=== PATIENT | female | born 1945 | race African-American/Black ===

== ENCOUNTER → 2018-11-03 | Day surgery (SDC) | payer MEDICARE ==
--- NOTE | 2018-11-01 12:33 | Diagnostic Imaging Report ---
EXAMINATION: CHEST 2 VIEWS INDICATION: Pre-admit. COMPARISON: None FINDINGS: TUBES and LINES: None. LUNGS: Lungs are well inflated. Lungs are clear. There is no evidence of pneumonia or pulmonary edema. PLEURA: No pleural effusion or pneumothorax. HEART AND MEDIASTINUM: The cardiomediastinal silhouette is unremarkable. BONES AND SOFT TISSUES: No acute osseous abnormality. UPPER ABDOMEN: No free air under the diaphragm. IMPRESSION: No acute radiographic abnormality. Signed by: Dr. Richar Adamson MD on 11/01/2018 12:30 PM
[~2018-11-03] MED LIST: ACETAMINOPHEN 1000 MG/100 ML IV ONE; BUPIVACAINE 0.5%/EPI 30 ML SDV INJ ONE; CLINDAMYCIN PHOS 900MG/ 50ML 50 ML IV ONE; DEXAMETHASONE SOD PHOS INJ 4 MG/ML VIAL ONE; FENTANYL CITRATE/PF 100MCG/2 ML INJ ONE; LIDOCAINE HCL 2% LOCAL INJ 5 ML SDV VIAL INJ ONE; MIDAZOLAM HCL 2 MG/2 ML VIAL ONE; PROPOFOL IV EMULSION 10 MG/ML 50 ML VIAL ONE; SEVOFLURANE INHAL SOLN 250 ML PEN BTL ONE
--- OUTSIDE RECORDS SUMMARY | 2018-11-03 06:26 | XMS REPORT ---
Author Author [facility] Address Unknown Phone Unavailable Care Team Providers Care Physicist [employer] Name Role Phone SANDRA GALVAN Unavailable Unavailable Problems This patient has no known problems. Allergies, Adverse Reactions, Alerts This patient has no known allergies or adverse reactions. Medications This patient has no known medications. Results Test Description Test Time Test Comments Text Results Atomic Results Result Comments CHEST 2 VIEWS 2018-11-01 12:28:00 [place] [address] Patient Name: LOUISE LOYOLA MR #: [id number] : 1945 Age/Sex: 73/F Req #: [id number] Adm Physician: Ordered by: SANDRA GALVAN MD Report #: [id number] Location: OR Room/Bed: Procedure: [id number] DX/CHEST 2 VIEWS Exam Date: Exam Time: REPORT STATUS: Signed EXAMINATION: CHEST 2 VIEWS INDICATION: Pre-admit. COMPARISON: None FINDINGS: TUBES and LINES: None. LUNGS: Lungs are well inflated. Lungs are clear. There is no evidence of pneumonia or pulmonary edema. PLEURA: No pleural effusion or pneumothorax. HEART AND MEDIASTINUM: The cardiomediastinal silhouette is unremarkable. BONES AND SOFT TISSUES: No acute osseous abnormality. UPPER ABDOMEN: No free air under the diaphragm. IMPRESSION: No acute radiographic abnormality. Signed by: Dr. Kimberly Calderon MD on 11/01/2018 12:30 PM Dictated By: KIMBERLY CALDERON MD 1230 Transcribed By: JOLANTA on 11/01/18 1230 COPY TO: SANDRA GALVAN MD
--- NOTE | 2018-11-03 07:10 | NUR ---
Pre-surgical visit. Pt unavailable at this time. Pt's nurse performing procedure bedside. LASHAWN VILLAR [facility] Department O: [phone] Pager: [phone] ([phone] number calling from)
[2018-11-03 11:15] VITALS: BP 134/87
--- NOTE | 2018-11-04 01:21 | Operative Report ---
DATE OF PROCEDURE: 11/03/2018 SURGEON: Virgil Aguilar MD PREOPERATIVE DIAGNOSES: 1. Right knee medial meniscus tear. 2. Right knee degenerative joint disease of the knee. POSTOPERATIVE DIAGNOSES: 1. Right knee medial meniscus tear. 2. Right knee lateral meniscus tear. 3. Right knee, degenerative joint disease of the knee. OPERATION/PROCEDURE PERFORMED: The patient underwent a right knee examination under anesthesia, right knee arthroscopy, right knee partial medial meniscectomy, right knee partial lateral meniscectomy, right knee chondroplasty of the patella, the trochlea, the medial femoral condyle, the medial tibial plateau, lateral femoral condyle, and lateral tibial plateau. RACKMAN: Minnie Grady. ANESTHESIA: General endotracheal intubation anesthesia. IV FLUIDS: Per the Anesthesia record. BRIEF DISCUSSION OF THE PATIENT'S OPERATIVE PROCEDURE: Ms. Chase was taken to the operating room, placed in the supine position on the operating room table. Following induction of general anesthesia as well as endotracheal intubation, the patient's right lower extremity was examined under anesthesia. She was found to have a mild effusion within the knee joint, but otherwise ligamentously stable knee. The patient's lower extremity was prepped and draped in standard surgical fashion. A 2-port technique was used to provide this patient arthroscopic evaluation of the knee joint. Examination of suprapatellar pouch, medial and lateral gutters found no evidence of loose bodies. There was, however, evidence of chondromalacia of the patella and trochlear surfaces. The scope was then advanced into the medial compartment. Examination of the medial compartment demonstrated a torn medial meniscus. There was also chondromalacia of the articulating surfaces. A combination of biting forceps and a motorized shaver were used to resect the torn portion of the meniscus. Chondroplasties of the medial femoral condyle and medial tibial plateau were also performed at this time. The scope was then advanced into intercondylar notch and the anterior cruciate ligament was identified and found to be intact. The scope was then advanced into the lateral compartment , noted an undersurface tear of the posterior horn of the lateral meniscus. There was loss of chondromalacia of the articulating surfaces. The combination of biting forceps and a motorized shaver were used to resect the torn portion of the meniscus. Chondroplasties of the lateral femoral condyle and lateral tibial plateau were performed at this time. The scope was then advanced into the suprapatellar pouch and chondroplasties of the patella and trochlea were performed. The knee was insufflated with sterile normal saline. The portal sites were closed using 4-0 nylon sutures. The portal sites as well as the knee itself were injected with 0.5% Marcaine with epinephrine. Sterile dressings were applied. The patient was then awakened and taken to the Postanesthesia Care Unit in stable condition. MD FAWN Taylor/MORALES /[id number]
== END | disposition home or self-care (01) ==
LOC: OR 06:24
PROVIDERS: ATTEND Specialist
DX: S83.261D Peripheral tear of lateral meniscus, current injury, right knee, subsequent encounter (principal); Z88.0 Allergy status to penicillin; M17.0 Bilateral primary osteoarthritis of knee; M70.51 Other bursitis of knee, right knee; S83.261A Peripheral tear of lateral meniscus, current injury, right knee, initial encounter; Z01.810 Encounter for preprocedural cardiovascular examination; Z01.811 Encounter for preprocedural respiratory examination
CPT/HCPCS: 29881; 29999; 71046; 93005; J2250; J1100; J2001